=== PATIENT | female | born 1990 | race Caucasian/White ===

== ENCOUNTER 2021-11-07 05:27 | Inpatient (IN) ==
[2021-11-07] MEDS ORDERED: MEPERIDINE 50 MG/1 ML VIAL IV PRN (06:30)
[2021-11-07] MEDS ORDERED: ONDANSETRON 4 MG/2 ML VIAL IV PRN ×2 (06:30→20:25)
[2021-11-07] MEDS ORDERED: BUTORPHANOL 2 MG/ML VIAL IV PRN (06:30)
[2021-11-07] MEDS ORDERED: OXYTOCIN/LR 20 UNIT/1,000 ML BAG IV SCH (06:30)
[2021-11-07] MEDS: LACTATED RINGERS 1,000 ML IV SCH ×2 (06:34→16:19)
[2021-11-07 06:56] LABS: Basophils % 0.3 % (0.0-0.8); Eosinophils # 0.1 10*3/uL (0.0-0.87); Eosinophils % 0.6 % (0.00-10.9); Hematocrit 34.4 VOL% (35.7-47.0); Hemoglobin 11.3 GM/DL (12.0-16.0); Immature Granulocytes % 1.2 %; Immature Granulocytes Absolute 0.14 #; Lymphocytes # 2.5 10*3/uL (1.4-4.0); Lymphocytes % 21.8 % (21.3-54.2); Mean Corpuscular HGB Conc 32.8 GM/DL (32-36); Mean Corpuscular Volume 93.5 FL (87-102); Mean Platelet Volume 9.8 FL (9.6-12.0); Monocytes % 6.2 % (1.7-12.7); Neutrophils % 69.9 % (38.7-73.9); Platelet Count 267 T/CUMM (130-400); Red Blood Count 3.68 MC/CUMM (3.8-5.5); Red Cell Distribution Width 13.4 % (9.3-17.3); White Blood Count 11.5 T/CUMM (4-12)
[2021-11-07 07:10] LABS: Albumin 2.7 G/DL (3.4-5.0); Bilirubin,Total 0.4 MG/DL (0.20-1.00); Calcium 9.2 MG/DL (8.5-10.1); Osmolality,Calculated 272.7 MOS/KG (273-304); Potassium 3.2 MMOL/L (3.5-5.1); Total Protein 6.4 G/DL (6.4-8.2)
[2021-11-07] MEDS ORDERED: diphenhydrAMINE 50 MG/1 ML VIAL IV PRN ×2 (09:40)
[2021-11-07] MEDS ORDERED: NALOXONE 0.4 MG/ML VIAL IV PRN (09:40)
[2021-11-07] MEDS ORDERED: LACTATED RINGERS 1,000 ML IV ONE (09:40)
[2021-11-07] MEDS ORDERED: ePHEDrine 50 MG/ML VIAL IV PRN (09:40)
[2021-11-07] MEDS ORDERED: CITRIC ACID/SODIUM CITRATE 30 ML UDCUP PO ONE (09:40)
[2021-11-07] MEDS ORDERED: FAMOTIDINE 20 MG/2 ML VIAL IV ONE (09:40)
[2021-11-07] MEDS ORDERED: fentaNYL 2 MCG/ROPIV 0.2% EPID 100 ML EPIDURAL SCH (10:00)
[2021-11-07 13:16] LABS: Bilirubin,Urine Negative (Negative); Blood, Urine Negative (Negative); Glucose,Urine (UA) Negative (Negative); Ketones,Urine 20 mg/dL (Negative); Mucus,Urine Occasional /LPF (Occasional); Nitrite,Urine Negative (Negative); Protein,Urine Negative; RBC,Urine <1 /HPF (0-4); Urine Appearance CLEAR (Clear); Urine Color Colorless (Yellow); Urine Specific Gravity 1.004 (1.001-1.035); Urine Urobilinogen < 2.0 EU/DL (<2.0)
[2021-11-07] MEDS ORDERED: miSOPROStoL 200 MCG TABLET ONE (17:03)
[2021-11-07] MEDS ORDERED: TRANEXAMIC ACID 1,000 MG/10 ML VIAL ONE (17:03)
[2021-11-07] MEDS ORDERED: METHYLERGONOVINE 0.2 MG/1 ML AMP ONE (17:04)
[2021-11-07] MEDS ORDERED: CARBOPROST TROMETHAMINE 250 MCG/ML AMP IM ONE (17:04)
[2021-11-07 18:35] LABS: Cord Arterial Blood HCO3 22.3 MMOL/L
[2021-11-07 18:37] LABS: Cord Venous Blood HCO3 21.3 MMOL/L; Cord Venous Blood PO2 20.5 MMHG
[2021-11-07] MEDS ORDERED: ACETAMINOPHEN 325 MG TABLET PO PRN (20:25)
[2021-11-07] MEDS ORDERED: DIPH/TET/ACEL PERT BOOSTER VACCINE 0.5 ML VIAL IM ONE (20:25)
[2021-11-07] MEDS ORDERED: MEASLES/MUMPS/RUBELLA VACCINE 0.5 ML VIAL SUBCUT ONE (20:25)
[2021-11-07] MEDS ORDERED: HYDROCORTISONE 2.5% RECTAL CREAM 30 GM TUBE TOP PRN (20:25)
[2021-11-07] MEDS ORDERED: OXYTOCIN/LR 20 UNIT/1,000 ML BAG IV ONE (20:25)
[2021-11-07] MEDS ORDERED: WITCH HAZEL PADS 100/JAR TOP PRN (20:25)
[2021-11-07] MEDS ORDERED: BENZOCAINE 20%/MENTHOL 0.5% SPRAY 56 GM CAN TOP PRN (20:25)
[2021-11-07] MEDS ORDERED: BISACODYL 10 MG SUPP RECTAL PRN (20:25)
[2021-11-07] MEDS ORDERED: RHO(D) IMMUNE GLOBULIN 300 MCG SYRINGE IM ONE (20:25)
[2021-11-07] MEDS ORDERED: oxyCODONE/ACETAMINOPHEN 5-325 MG TABLET PO PRN ×2 (20:25)
[2021-11-07] MEDS ORDERED: LANOLIN 50% CREAM 0.3 OZ TUBE TOP PRN (20:25)
[2021-11-07] MEDS: IBUPROFEN 800 MG TABLET PO PRN (21:13)
[2021-11-07] MEDS: POTASSIUM CHLORIDE 20 MEQ TABLET PO PRN (23:40)
[2021-11-08] MEDS: POTASSIUM CHLORIDE 20 MEQ TABLET PO PRN ×3 (01:57→05:26)
[2021-11-08 05:06] LABS: Basophils # 0.1 10*3/uL (0.0-0.2); Basophils % 0.3 % (0.0-0.8); Eosinophils # 0.1 10*3/uL (0.0-0.87); Eosinophils % 0.4 % (0.00-10.9); Hematocrit 33.4 VOL% (35.7-47.0); Hemoglobin 10.9 GM/DL (12.0-16.0); Immature Granulocytes % 0.9 %; Immature Granulocytes Absolute 0.16 #; Lymphocytes # 2.7 10*3/uL (1.4-4.0); Lymphocytes % 15.7 % (21.3-54.2); Mean Corpuscular HGB Conc 32.6 GM/DL (32-36); Mean Corpuscular Volume 93.3 FL (87-102); Mean Platelet Volume 9.9 FL (9.6-12.0); Monocytes % 6.3 % (1.7-12.7); Neutrophils % 76.4 % (38.7-73.9); Platelet Count 232 T/CUMM (130-400); Red Blood Count 3.58 MC/CUMM (3.8-5.5); Red Cell Distribution Width 13.4 % (9.3-17.3); White Blood Count 17.2 T/CUMM (4-12)
[2021-11-08] MEDS: IBUPROFEN 800 MG TABLET PO PRN ×4 (05:28→23:46)
[2021-11-08] MEDS: DOCUSATE SODIUM 100 MG CAPSULE PO SCH ×2 (09:12→20:46)
[2021-11-09] MEDS: IBUPROFEN 800 MG TABLET PO PRN (05:58)
[2021-11-09 08:38] VITALS: BP 121/76
[2021-11-09] MEDS: DOCUSATE SODIUM 100 MG CAPSULE PO SCH (09:03)
== END 2021-11-09 11:05 | disposition home or self-care (01) | DRG 807 ==
LOC: N.LD 05:27 → N.OB 22:10
PROVIDERS: ADMIT Specialist; ATTEND Specialist